=== PATIENT | male | born 1970 | race Caucasian/White ===

== ENCOUNTER 2020-09-11 06:17 | Outpatient (CLI) | payer OTHER ==
[2020-09-11 14:10] LABS: INR-International Normal Ratio 0.9; PTT 29.8 sec (22.9-36.1); Prothrombin Time 12.7 sec (12.0-14.7)
[2020-09-11 14:49] LABS: Hemoglobin 15.8 g/dL (14.0-18.0); Mean Corpuscular HGB CONC 32.8 g/dL (32.0-36.0); Mean Corpuscular Hemoglobin 29.9 pg (27.0-31.0); Mean Corpuscular Volume 91.2 fL (78.0-98.0); Mean Platelet Volume 9.2 fL (7.4-10.4); Platelet Count 198 thou/uL (130-400); RBC Distribution Width 11.8 % (11.5-14.5); Red Blood Cell (RBC) Count 5.27 mill/uL (4.70-6.10); White Blood Cell (WBC) Count 6.2 thou/uL (4.8-10.8)
[2020-09-11 14:57] LABS: Anion Gap 13 mmol/L (10-20); BUN (Urea Nitrogen) 11 mg/dL (8.9-20.6); Calc. Creatinine Clearance 0 mL/min (70-130); Calcium 9.4 mg/dL (7.8-10.44); Carbon Dioxide 26 mmol/L (22-29); Chloride 101 mmol/L (98-107); Estimated GFR-MDRD 84; Glucose 90 mg/dL (70-105); Potassium 4.1 mmol/L (3.5-5.1); Sodium 136 mmol/L (136-145)
[2020-09-12 11:34] LABS: SARS-CoV-2 MS2 Positive; SARS-CoV-2 N Gene Negative; SARS-CoV-2 S Gene Negative; SARS-CoV-2 by NAA Not Detected (NotDetected); SARS-CoV-2 orf1ab Negative
--- NOTE | 2020-09-12 14:51 | EKG ---
Test Reason : Blood Pressure : / mmHG Vent. Rate : 085 BPM Atrial Rate : 085 BPM P-R Int : 152 ms QRS Dur : 100 ms QT Int : 370 ms P-R-T Axes : 061 045 038 degrees QTc Int : 440 ms Normal sinus rhythm Inferior infarct , age undetermined Abnormal ECG No previous ECGs available Confirmed by CHRISTINA LOFTON (2) on 09/12/2020 2:51:04 PM Referred By: PRUDENCE Confirmed By:CHRISTINA LOFTON
== END 2020-09-11 06:18 | disposition home or self-care (01) ==
LOC: LABBT 06:17
PROVIDERS: ATTEND Surgery
DX: Z01.818 Encounter for other preprocedural examination (principal); Z20.828 Contact with and (suspected) exposure to other viral communicable diseases; M50.10 Cervical disc disorder with radiculopathy, unspecified cervical region; M48.02 Spinal stenosis, cervical region
CPT/HCPCS: 80048; 85027; 85610; 85730; 87635; 93005; 93010; U0003

== ENCOUNTER 2020-09-14 06:24 | Day surgery (SDC) | payer OTHER ==
[2020-09-13 13:51] VITALS: BMI 30.8
[2020-09-14] MEDS ORDERED: Thrombin 5000 UNITS/5 ML VIAL ONE (06:30)
[2020-09-14] MEDS ORDERED: Scopolamine 1.5 mg/72 hour Patch ONE (06:56)
[2020-09-14] MEDS ORDERED: Famotidine/PF 20 mg/2ml Vial ONE (06:56)
[2020-09-14] MEDS ORDERED: Promethazine HCl 25 MG/ML VIAL ONE (07:01)
[2020-09-14] MEDS ORDERED: Fentanyl 100 MCG/2 ML VIAL ONE ×4 (07:01→11:00)
[2020-09-14] MEDS ORDERED: Midazolam HCl 2 mg/2 ml Vial ONE (07:14)
[2020-09-14] MEDS ORDERED: PACU-Morphine 4MG/ML VIAL SLOW IVP PRN (09:15)
[2020-09-14] MEDS ORDERED: Ondansetron HCl/PF 4 MG/2 ML Vial IVP PRN (09:15)
[2020-09-14] MEDS ORDERED: Promethazine HCl 25 MG/ML VIAL SLOW IVP PRN (09:15)
[2020-09-14] MEDS ORDERED: Promethazine HCl 25 MG/ML VIAL IM PRN ×2 (09:15→10:01)
[2020-09-14] MEDS ORDERED: Morphine Sulfate 2 MG/ML SYRINGE SLOW IVP PRN (09:15)
[2020-09-14] MEDS ORDERED: HYDROmorphone 2 MG/ML VIAL SLOW IVP PRN (09:15)
[2020-09-14] MEDS ORDERED: HYDROmorphone 2 MG/ML VIAL ONE (09:31)
[2020-09-14] MEDS ORDERED: traMADol HCl 50 MG TAB PO PRN (10:01)
[2020-09-14] MEDS ORDERED: Mag-Al 1200 mg/1200 mg/30 ML UDCUP PO PRN (10:01)
[2020-09-14] MEDS ORDERED: Ondansetron PF 4 MG/2 ML Vial IVP PRN (10:01)
[2020-09-14] MEDS ORDERED: diphenhydrAMINE 25 MG CAP PO PRN (10:01)
[2020-09-14] MEDS ORDERED: Milk Of Magnesia 30 ML UDCUP PO PRN (10:01)
[2020-09-14] MEDS ORDERED: Acetaminophen/Codeine 30-300mg Tablet PO PRN (10:01)
[2020-09-14] MEDS ORDERED: Bisacodyl 10 MG SUPP PR PRN (10:01)
[2020-09-14] MEDS ORDERED: HYDROcodone/Acetaminophen 7.5/325 mg Tablet PO PRN (10:01)
[2020-09-14] MEDS ORDERED: Acetaminophen 325 MG TAB PO PRN (10:01)
[2020-09-14] MEDS ORDERED: Ondansetron PF 4 MG/2 ML Vial ONE (11:08)
[2020-09-14] MEDS ORDERED: Metoclopramide HCl 10 MG/2 ML VIAL ONE (11:08)
[2020-09-14] MEDS ORDERED: Rocuronium Bromide 10 MG/ML (10ML VIAL) ONE (11:08)
[2020-09-14] MEDS ORDERED: Lidocaine 1% PF 5 ML VIAL ONE (11:08)
[2020-09-14] MEDS ORDERED: Dexamethasone 20 MG/5 ML VIAL ONE (11:08)
[2020-09-14] MEDS ORDERED: Glycopyrrolate 0.2 MG/ML 5 ML SYRINGE ONE (11:08)
[2020-09-14] MEDS ORDERED: HYDROmorphone 0.5 MG/0.5 ML SYRINGE ONE (11:08)
[2020-09-14] MEDS ORDERED: PROPOFOL 200 MG/20 ML VIAL ONE (11:08)
[2020-09-14] MEDS ORDERED: PHENYLEPHRINE-NS 100 MCG/ML 10 ML SYRINGE ONE (11:08)
[2020-09-14] MEDS ORDERED: Vecuronium 10 MG VIAL ONE (11:08)
[2020-09-14] MEDS: Morphine 2 MG/ML VIAL SLOW IVP PRN ×2 (16:14→20:26)
[2020-09-14] MEDS: CEFAZOLIN 2 GM in Premix Bag 1 BAG IVPB SCH (16:14)
[2020-09-14] MEDS: Sodium Chloride 0.9% 1,000 ML IV SCH (16:14)
[2020-09-14] MEDS: tiZANidine HCl 4 MG TAB PO PRN (19:33)
[2020-09-15] MEDS: CEFAZOLIN 2 GM in Premix Bag 1 BAG IVPB SCH ×2 (00:13→09:03)
[2020-09-15] MEDS: Sodium Chloride 0.9% 1,000 ML IV SCH (00:16)
[2020-09-15] MEDS: tiZANidine HCl 4 MG TAB PO PRN (05:28)
[2020-09-15] MEDS ORDERED: FLU VACC QS2020-21(6MOS UP)/PF 60 MCG/0.5 ML SYRINGE IM ONE (09:00)
[2020-09-15] MEDS ORDERED: Dexamethasone 10 MG/ML VIAL SLOW IVP SCH (11:00)
--- NOTE | 2020-09-15 11:25 | PRG ---
DATE OF SERVICE: 09/15/2020 Mr. Mcmullen is doing very well on postoperative day 1, C5 through C7 ACDF. He is tolerating oral. He has mild dysphonia and dysphagia, but his neck and left arm pain are significantly improved compared to before surgery and he has good strength in his myotomes throughout his upper and lower extremities. He did have some paresthesias and dysesthesias in the C7 distribution this morning. We will give him a bolus of Decadron prior to discharge just to combat against any radiculitis. Job ID: [id number]
[2020-09-15 11:31] VITALS: BP 107/70; TEMP 97.7
--- NOTE | 2020-09-17 08:18 | OP ---
DATE OF PROCEDURE: 09/14/2020 NEONATAL NURSE PRACTITIONER: Lorena Lopez PA-C PREPROCEDURE DIAGNOSIS: Neck and arm pain with progressive loss of function due to C6 and C7 radiculopathy and stenosis. POSTPROCEDURE DIAGNOSIS: Neck and arm pain with progressive loss of function due to C6 and C7 radiculopathy and stenosis. PROCEDURES PERFORMED: 1. Anterior C5-C6 and C6-C7 diskectomies with decompression of spinal cord nerve roots. 2. Placement of interbody spacer, separate from plate, C5-C6 and C6-C7. 3. Preparation of the endplates for arthrodesis and spacers, separate from the plate, packed with local bone autograft, obtained from same incision on allograft. 4. Anterior cervical plate and screw fixation, C5, C6, and C7. 5. Use of operative microscope for microdissection. DESCRIPTION OF PROCEDURE: After informed consent was obtained from the patient, the patient was brought to the OR. Proper patient, pause, and identification were carried out. He was placed under excellent general endotracheal anesthesia and positioned supine on the OR table. Right transverse maryellen was made. This region was sterilely cleansed, prepared, and draped in the anterior neck. This region was sterilely cleansed. The wound was then opened with a combination of sharp, monopolar, and blunt dissection. We proceeded lateral to the tracheoesophageal bundle and medial to the right carotid sheath. We identified the prevertebral layer of deep cervical fascia. C5, C6, and C7 segments were all exposed and retraction placed. Distraction at C5-C6 then occurred and diskectomy was performed with the use of the operative microscope for microdissection with excellent decompression of common dural tube in the C6 nerve roots bilaterally. An interbody spacer separate from the graft was placed, packed with local bone autograft obtained from same incision on allograft at C5-C6 for arthrodesis initiation. This was separate from the plate. This procedure was repeated at C6-C7 with decompression of spinal cord and C7 nerve roots and preparation of the endplates were occurred and placement of interbody spacer packed with graft again, separate from the plate was placed and this was for initiation of arthrodesis. Microscope was then removed. Anterior cervical plate and screw fixation with final tightening then occurred at C5, C6, C7. We were satisfied the construct. Copious irrigation occurred throughout as did maximizing hemostasis. The wound was closed in anatomic layers over a drain. The patient emerged from anesthesia. Job ID: [id number]
== END 2020-09-15 11:45 | disposition home or self-care (01) ==
LOC: SDC 06:24 → SURG A 10:00 → SDC 09-15 11:45
PROVIDERS: ATTEND Surgery
PROC: 0RT30ZZ Resection of Cervical Vertebral Disc, Open Approach (ICD-10-PCS; principal; 2020-09-14)
PROC: 0RG20A0 Fusion of 2 or more Cervical Vertebral Joints with Interbody Fusion Device, Anterior Approach, Anterior Column, Open Approach (ICD-10-PCS; principal; 2020-09-14)
PROC: 0RG2070 Fusion of 2 or more Cervical Vertebral Joints with Autologous Tissue Substitute, Anterior Approach, Anterior Column, Open Approach (ICD-10-PCS; principal; 2020-09-14)
DX: M50.122 Cervical disc disorder at C5-C6 level with radiculopathy (principal); M48.02 Spinal stenosis, cervical region; G47.30 Sleep apnea, unspecified; F90.0 Attention-deficit hyperactivity disorder, predominantly inattentive type; F41.9 Anxiety disorder, unspecified; F32.9 Major depressive disorder, single episode, unspecified; Z79.899 Other long term (current) drug therapy
CPT/HCPCS: 76000; 90471; 90662; C1713; C1776; G0008; J0690; J1100; J1170; J2250; J2270; J2405; J2550; J2704; J2765; J3010; J3490; S0028

== ENCOUNTER 2020-10-31 15:43 | Outpatient (CLI) | payer OTHER ==
--- NOTE | 2020-10-31 15:57 | RAD ---
Exam: 4 views cervical spine HISTORY: Radiculopathy. Follow-up cervical fusion FINDINGS: Appropriate alignment of the lateral masses of C1 and C2 on the open-mouth projection. Inta ct odontoid process No malalignment on the AP projection No prevertebral soft tissue swelling. Predental space is normal Cervical spine vertebral body heights are maintained. There is no fracture. There is an anterior fusi on plate with transvertebral body screw at C5, C6 and C7. The C7 screw appears to be backed out and does not appear to be flush against the plate. There is a 65-C6 and C6-C7 disc prosthesis. IMPRESSION: Screw at C7 does not appear to be flush with the associated fusion plate. CODE T
== END 2020-10-31 15:44 | disposition home or self-care (01) ==
LOC: TBSIIMAG 15:43
PROVIDERS: ATTEND Surgery
DX: M54.12 Radiculopathy, cervical region (principal); M48.02 Spinal stenosis, cervical region; Z98.1 Arthrodesis status
CPT/HCPCS: 72040

== ENCOUNTER 2020-11-27 09:26 | Outpatient (CLI) | payer OTHER ==
--- NOTE | 2020-11-27 12:30 | RAD ---
CERVICAL SPINE 3 VIEWS: HISTORY: Cervical radiculopathy, followup. ADCF hardware. FINDINGS: Anterior cervical fusion changes at C5, C6, and C7, one of these screws at C7 remains slightly backed out. Stable from prior study. IMPRESSION: Stable-appearing anterior cervical fusion changes. POS: RRE
== END 2020-11-27 09:27 | disposition home or self-care (01) ==
LOC: TBSIIMAG 09:26
PROVIDERS: ATTEND Surgery
DX: M54.12 Radiculopathy, cervical region (principal); M48.02 Spinal stenosis, cervical region; Z98.1 Arthrodesis status
CPT/HCPCS: 72040